=== PATIENT | male | born 1970 | race Caucasian/White ===

== ENCOUNTER 2017-05-31 12:59 | Emergency (ER) | payer OTHER ==
[2017-05-31 13:18] VITALS: BP 141/88; PULSE 72; RESP 16; TEMP 96.6
--- NOTE | 2017-05-31 13:31 | ED ---
General Adult HPI - General Chief complaint: Recheck/Abnormal Lab/Rx Stated complaint: Med Refill Time Seen by Provider: 05/31/17 13:17 Source: patient, RN notes reviewed Mode of arrival: ambulatory Limitations: no limitations - History of Present Illness Initial comments: 47-year-old male who presents emergency room today with chief complaint of needing medication refill. Patient does admit that he is on psychiatric medications of Seroquel, Lexapro. States that he's to his last dose of his medications earlier today. Patient does admit that he was following up with [facility]. He states that he was unable to keep appointments due to a new job. He states he does have an appointment with a new psychiatrist in 5 days. Will not have this medication is worried that he may have some symptoms. Denies any homicidal, suicidal thoughts or plans. Patient denies any auditory or visual hallucinations. He denies any other physical complaints. Patient denies any recent fever, chills, shortness of breath, chest pain, back pain, abdominal pain , nausea or vomiting, numbness or tingling, dysuria or hematuria, constipation or diarrhea, headaches or visual changes, or any other complaints. - Related Data Previous Rx's Medication Instructions Recorded QUEtiapine [SEROquel] 200 mg PO DAILY #30 tablet 03/27/16 Ondansetron Odt [Zofran ODT] 4 mg PO Q8HR PRN #15 tab 06/23/16 Escitalopram [Lexapro] 20 mg PO DAILY #10 tablet 05/31/17 QUEtiapine [SEROquel] 150 mg PO HS #15 tablet 05/31/17 Allergies Allergy/AdvReac Type Severity Reaction Status Date / Time No Known Allergies Allergy Verified 05/31/17 13:11 Review of Systems ROS Statement: Those systems with pertinent positive or pertinent negative responses have been documented in the HPI. ROS Other: All systems not noted in ROS Statement are negative. Past Medical History Past Medical History: COPD, Diabetes Mellitus, Hyperlipidemia, Hypertension Additional Past Medical History / Comment(s): Hypertension and hypertensive cardio vascular disease, diabetes mellitus type 2, diabetic neuropathy, hyperlipidemia, chronic tobacco use and dependence, chronic alcohol use and dependence. History of Any Multi-Drug Resistant Organisms: None Reported Past Surgical History: No Surgical Hx Reported Past Anesthesia/Blood Transfusion Reactions: No Reported Reaction Additional Past Anesthesia/Blood Transfusion Reaction / Comment(s): Never had anesthesia Past Psychological History: Anxiety, Bipolar, Depression, Panic Disorder Smoking Status: Current every day smoker Past Alcohol Use History: Occasional Past Drug Use History: None Reported - Past Family History Mother Family Medical History: Cancer Additional Family Medical History / Comment(s): Mother at age 58 from ovarian cancer. Father Family Medical History: Coronary Artery Disease (CAD), Myocardial Infarction ([place] ) Additional Family Medical History / Comment(s): Father at age 58 from myocardial infarction. His father also had 8 brothers who have all in their 50s from a myocardial infarction. Brother(s) Family Medical History: Hypertension Additional Family Medical History / Comment(s): Patient has 4 brothers and all have hypertension. Sister(s) Family Medical History: Cancer Additional Family Medical History / Comment(s): Patient has 3 sisters. 2 sisters have had breast cancer. One sister suffers from depression and has had previous suicide attempts. General Exam - General Exam Comments Initial Comments: General: The patient is awake and alert, in no distress, and does not appear acutely ill. Eye: Pupils are equal, round and reactive to light, extra-ocular movements are intact. No nystagmus. There is normal conjunctiva bilaterally. No signs of icterus. Ears, nose, mouth and throat: There are moist mucous membranes and no oral lesions. Neck: The neck is supple, there is no tenderness or JVD. Cardiovascular: There is a regular rate and rhythm. No murmur, rub or gallop is appreciated. Respiratory: Lungs are clear to auscultation, respirations are non-labored, breath sounds are equal. No wheezes, stridor, rales, or rhonchi. Musculoskeletal: Normal ROM, no tenderness. Strength 5/5. Sensation intact. Pulses equal bilaterally 2+. Neurological: A&O x 3. CN II-XII intact, There are no obvious motor or sensory deficits. Coordination appears grossly intact. Speech is normal. Skin: Skin is warm and dry and no rashes or lesions are noted. Psychiatric: Cooperative, appropriate mood & affect, normal judgment. Limitations: no limitations Course Vital Signs 05/31/17 13:11 Temperature 96.6 F L Pulse Rate 72 Respiratory 16 Rate Blood Pressure 141/88 O2 Sat by Pulse 100 Oximetry Medical Decision Making - Medical Decision Making Patient will be provided prescription for Seroquel and Lexapro for the next week until he is able follow-up with psychiatrist. Is advised return for any other concerns. Disposition Clinical Impression: Encounter for medication refill Disposition: HOME SELF-CARE Condition: Good Instructions: Medicine Refill (ED) Additional Instructions: Please follow-up with psychiatrist as discussed. Please use medication as prescribed. Please return to emergency room for any other concerns. Prescriptions: Escitalopram [Lexapro] 20 mg PO DAILY #10 tablet QUEtiapine [SEROquel] 150 mg PO HS #15 tablet Referrals: Marcell Noble MD [Primary Care Provider] - 1-2 days Time of Disposition: 13:28
== END 2017-05-31 13:44 | disposition home or self-care (01) ==
LOC: EC 12:59
DX: Z76.0 Encounter for issue of repeat prescription (principal); F41.9 Anxiety disorder, unspecified; F32.9 Major depressive disorder, single episode, unspecified; F17.200 Nicotine dependence, unspecified, uncomplicated
CPT/HCPCS: 99281

== ENCOUNTER 2017-09-02 11:09 | Inpatient (IN) | payer MEDICAID, OTHER ==
--- NOTE | 2017-09-02 11:37 | ED ---
General Adult HPI - General Chief complaint: Psychiatric Symptoms Stated complaint: Mental Health Time Seen by Provider: 09/02/17 11:11 Source: patient, EMS, RN notes reviewed Mode of arrival: EMS Limitations: no limitations - History of Present Illness Initial comments: Patient is a pleasant 47-year-old male presenting to the emergency Department with depression. Symptoms started around a week ago. Patient has multiple problems. Patient with recent separation from his significant other. Patient recently lost his job. Patient has suicidal thoughts with plan of getting drunk and running [place] [address]. No homicidal thoughts. Patient has been dealing with right ear problems and had MRI recently however this is somewhat chronic. No alcohol or street drug use. - Related Data Home Medications Medication Instructions Recorded Confirmed QUEtiapine [SEROquel] 150 mg PO HS 09/02/17 09/02/17 Previous Rx's Medication Instructions Recorded Escitalopram [Lexapro] 20 mg PO DAILY #10 tablet 05/31/17 Allergies Allergy/AdvReac Type Severity Reaction Status Date / Time No Known Allergies Allergy Verified 05/31/17 13:31 Review of Systems ROS Statement: Those systems with pertinent positive or pertinent negative responses have been documented in the HPI. ROS Other: All systems not noted in ROS Statement are negative. Constitutional: Denies: fever Eyes: Denies: eye pain ENT: Reports: hearing loss (for months from the right ear). Denies: throat pain Respiratory: Denies: cough Cardiovascular: Denies: chest pain Endocrine: Denies: fatigue Gastrointestinal: Denies: abdominal pain Genitourinary: Denies: dysuria Musculoskeletal: Denies: back pain Skin: Denies: rash Neurological: Denies: headache Psychiatric: Reports: depression, suicidal thoughts Past Medical History Past Medical History: COPD, Diabetes Mellitus, Hyperlipidemia, Hypertension Additional Past Medical History / Comment(s): Hypertension and hypertensive cardio vascular disease, diabetes mellitus type 2, diabetic neuropathy, hyperlipidemia, chronic tobacco use and dependence, chronic alcohol use and dependence. History of Any Multi-Drug Resistant Organisms: None Reported Past Surgical History: No Surgical Hx Reported Past Anesthesia/Blood Transfusion Reactions: No Reported Reaction Additional Past Anesthesia/Blood Transfusion Reaction / Comment(s): Never had anesthesia Past Psychological History: Anxiety, Bipolar, Depression, Panic Disorder Smoking Status: Current every day smoker Past Alcohol Use History: Occasional Past Drug Use History: None Reported - Past Family History Mother Family Medical History: Cancer Additional Family Medical History / Comment(s): Mother at age 58 from ovarian cancer. Father Family Medical History: Coronary Artery Disease (CAD), Myocardial Infarction ([place] ) Additional Family Medical History / Comment(s): Father at age 58 from myocardial infarction. His father also had 8 brothers who have all in their 50s from a myocardial infarction. Brother(s) Family Medical History: Hypertension Additional Family Medical History / Comment(s): Patient has 4 brothers and all have hypertension. Sister(s) Family Medical History: Cancer Additional Family Medical History / Comment(s): Patient has 3 sisters. 2 sisters have had breast cancer. One sister suffers from depression and has had previous suicide attempts. General Exam Limitations: no limitations General appearance: alert, in no apparent distress Head exam: Present: atraumatic Eye exam: Present: normal appearance, PERRL ENT exam: Present: TM's normal bilaterally Neck exam: Present: normal inspection Respiratory exam: Present: normal lung sounds bilaterally Cardiovascular Exam: Present: regular rate, normal rhythm GI/Abdominal exam: Present: soft. Absent: tenderness Extremities exam: Present: normal inspection Neurological exam: Present: alert Psychiatric exam: Present: depressed Skin exam: Present: normal color Course Vital Signs 09/02/17 09/02/17 11:12 13:36 Temperature 97.1 F L 97.8 F Pulse Rate 94 73 Respiratory 18 16 Rate Blood Pressure 167/103 136/81 O2 Sat by Pulse 100 98 Oximetry Medical Decision Making - Medical Decision Making Patient was seen by mental health services, who will admit. - Lab Data Lab Results 09/02/17 Range/Units 13:32 POC Glucose (mg/dL) 186 H (75-99) mg/dL POC Glu Residential Program Director ID Judith Carpenter Disposition Clinical Impression: Depression, Suicidal thoughts Disposition: TRANSFER TO PSYCH HOSP/UNIT Decision Time: 14:26
[2017-09-02 13:34] LABS: Glucose,Whole Blood 186 mg/dL (75-99)
[2017-09-02 14:47] LABS: Amphetamine Screen,Urine Not Detected (NotDetected); Barbiturate Screen,Urine Not Detected (NotDetected); Benzodiazepines Screen,Urine Not Detected (NotDetected); Cocaine Screen,Urine Not Detected (NotDetected); Methadone Screen, Urine Not Detected (NotDetected); Opiate Screen,Urine Not Detected (NotDetected); Oxycodone Screen, Urine Not Detected (NotDetected); Phencyclidine Screen,Urine Not Detected (NotDetected); Tricyclic Antidepressant,Urine Detected (NotDetected); Urn Cannabinoid Scrn Not Detected (NotDetected)
[2017-09-02 15:11] VITALS: BMI 28.6
[2017-09-02] MEDS ORDERED: MAGNESIUM HYDROXIDE 2,400 MG/10 ML CUP PO PRN (15:46)
[2017-09-02] MEDS ORDERED: ACETAMINOPHEN TAB 325 MG TAB PO PRN (15:46)
[2017-09-02] MEDS ORDERED: MAG HYDROX/AL HYDROX/SIMETH 30 ML CUP PO PRN (15:46)
[2017-09-02 16:01] LABS: Glucose,Whole Blood 131 mg/dL (75-99)
[2017-09-02] MEDS: NICOTINE 21MG/24HR PATCH TRANSDERM SCH (16:25)
[2017-09-02] MEDS: metFORMIN 850 MG TAB PO SCH ×2 (16:25→21:08)
[2017-09-02 17:10] LABS: Glucose,Whole Blood 125 mg/dL (75-99)
[2017-09-02 20:20] LABS: Glucose,Whole Blood 183 mg/dL (75-99)
[2017-09-02] MEDS: ATORVASTATIN 20 MG TAB PO SCH (21:08)
[2017-09-02] MEDS: METOPROLOL TARTRATE 50 MG TAB PO SCH (21:08)
[2017-09-02] MEDS: QUEtiapine 50 MG TAB PO SCH (21:09)
[2017-09-03 06:16] LABS: Glucose,Whole Blood 152 mg/dL (75-99)
[2017-09-03 07:51] LABS: Basophils # (A) 0.1 k/uL (0-0.2); Basophils % (A) 1 %; Eosinophils # (A) 0.3 k/uL (0-0.7); Eosinophils % (A) 4 %; HCT 43.7 % (39.0-53.0); HGB 14.6 gm/dL (13.0-17.5); Lymphocytes % (A) 30 %; MCH 32.2 pg (25.0-35.0); MCHC 33.3 g/dL (31.0-37.0); MCV 96.8 fL (80.0-100.0); Mean Platelet Volume 8.2; Monocytes # (A) 0.4 k/uL (0-1.0); Monocytes % (A) 6 %; Neutrophils # (A) 3.9 k/uL (1.3-7.7); Neutrophils % (A) 58 %; Platelet Count 190 k/uL (150-450); RBC 4.51 m/uL (4.30-5.90); RDW 12.4 % (11.5-15.5); WBC 6.7 k/uL (3.8-10.6)
[2017-09-03] MEDS: METOPROLOL TARTRATE 50 MG TAB PO SCH ×2 (08:38→21:10)
[2017-09-03] MEDS: LISINOPRIL 10 MG TAB PO SCH (08:38)
[2017-09-03] MEDS: metFORMIN 850 MG TAB PO SCH ×3 (08:38→21:10)
[2017-09-03] MEDS: NICOTINE 21MG/24HR PATCH TRANSDERM SCH (08:38)
[2017-09-03 08:41] LABS: ALT 50 U/L (21-72); AST 29 U/L (17-59); Alkaline Phosphatase 48 U/L (38-126); Anion Gap 7 mmol/L; Blood Urea Nitrogen 12 mg/dL (9-20); Calcium 9.9 mg/dL (8.4-10.2); Carbon Dioxide 30 mmol/L (22-30); Chloride 103 mmol/L (98-107); Cholesterol 149 mg/dL (<200); Glucose 175 mg/dL (74-99); HDL Cholesterol 28 mg/dL (40-60); Potassium 4.9 mmol/L (3.5-5.1); Sodium 140 mmol/L (137-145); Total Bilirubin 0.3 mg/dL (0.2-1.3); Total Protein 6.5 g/dL (6.3-8.2); Triglycerides 469 mg/dL (<150)
[2017-09-03] MEDS ORDERED: ESCITALOPRAM 20 MG TAB PO SCH (09:00)
--- NOTE | 2017-09-03 09:47 | CONS ---
CONSULTATION DATE OF SERVICE: 09/02/2017 REASON FOR CONSULTATION: Medical management. BRIEF HISTORY: Patient is a 47-year-old male patient with a history of depression which started about a week ago. Patient is going through stressors in life with the separation from his significant other, recently lost his job and claims that he has a suicidal thoughts and planned on getting drunk and running in front of a semi-truck on -. PAST MEDICAL HISTORY: Significant for COPD, diabetes, hypertension, hyperlipidemia, diabetic neuropathy, chronic tobacco use, chronic alcohol use and dependence. History of anxiety, bipolar, depression, panic disorder. PAST SURGICAL HISTORY: Denies any surgeries. SOCIAL HISTORY: Patient smokes a pack of cigarettes every day. Claims he binge drinks. FAMILY HISTORY: Significant for cancer in mother who at the age of 58 of ovarian cancer. Father has history of coronary artery disease. ALLERGIES: He has no known drug allergies. MEDICATION: He is on Seroquel 150 mg p.o. q.h.s., Lexapro 20 mg p.o. daily. REVIEW OF SYSTEMS: CONSTITUTIONAL: Denies any fever or chills. HEENT: No deafness or vision loss. RESPIRATORY: Denies shortness of breath or wheezing. CARDIOVASCULAR: No chest pain or palpitation. GI AND ABDOMEN: Denies nausea, vomiting or diarrhea. GENITOURINARY: No hematuria and no dysuria. MUSCULOSKELETAL: The patient has good range of motion. Denies any joint deformities. NEUROLOGICAL: Denies headache, lightheadedness, dizziness. LYMPHATICS: Denies any enlarged lymph nodes. ENDOCRINE: Denies polyuria, polydipsia. RHEUMATOLOGICAL: Denies any joint swelling. HEME/ONCOLOGY: Denied any bleeding disorder or anemia. Rest of 14-point review of system is unremarkable. PHYSICAL EXAMINATION: Patient is awake, alert, slow to respond. VITAL SIGNS: Temperature of 97.1, pulse 94, respiration 18, blood pressure 167/103, O2 saturation 100%. HEENT: Atraumatic, normocephalic. Pupils equal and reactive to light. Extraocular movements intact. Buccal mucosa is fair. NECK: Supple. No goiter or lymphadenopathy. JVD is negative. No carotid bruit heard. Lungs are clear to auscultate. No rales, rhonchi or wheezes. Heart is regular rate and rhythm without any murmurs gallop rhythm. ABDOMEN: Soft, nontender, nondistended. Bowel sounds positive. EXTREMITIES: No edema, clubbing, cyanosis. NEUROLOGICAL EXAMINATION: Cranial nerves 2-12 grossly intact. No gross motor or sensory deficit. PSYCHIATRIC EXAMINATION: Patient is slow to respond and withdrawn. Skin is warm and dry and intact. LYMPHATICS: No lymph nodes are palpable. The patient's blood sugar running 186. ASSESSMENT: 1. Uncontrolled hypertension. 2. Hyperglycemia without acidosis. 3. Hyperlipidemia. 4. Hypertension. 5. Chronic obstructive pulmonary disease. 6. Tobacco dependence. 7. Alcohol dependence. 8. Depression with suicidal ideation. The patient is admitted to the psych floor and monitor Accu-Cheks and cover accordingly. Will continue with all home medications. Patient's blood pressure was markedly elevated and upon presentation to the ER, is somewhat stable now. Will monitor closely and adjust medications if needed. Will resume all home medications. Me and my team thank you for this kind consultation. We will follow the patient with you. LESLIE / ROBERTA: [id number] /
[2017-09-03] MEDS ORDERED: ESCITALOPRAM 10 MG TAB PO STA (10:02)
[2017-09-03 13:00] LABS: Glucose,Whole Blood 170 mg/dL (75-99)
[2017-09-03 18:02] LABS: Hemoglobin A1C 7.9 % (4.0-6.0)
[2017-09-03 18:02] LABS: Glucose,Whole Blood 128 mg/dL (75-99)
[2017-09-03 19:34] LABS: Appearance,Urine Clear (Clear); Bilirubin,Urine Negative (Negative); Blood,Urine Negative (Negative); Color,Urine Yellow; Glucose,Urine (UA) Negative (Negative); Ketones,Urine Trace (Negative); Leukocyte Esterase,Urine Negative (Negative); Mucus,Urine Occasional /hpf; Nitrite,Urine Negative (Negative); PH, Urine 6.5 (5.0-8.0); Protein,Urine 1+ (Negative); Specific Gravity,Urine 1.025 (1.001-1.035); Sperm,Urine Few /hpf; WBC,Urine <1 /hpf (0-5)
[2017-09-03 20:21] LABS: Glucose,Whole Blood 168 mg/dL (75-99)
[2017-09-03] MEDS: QUEtiapine 50 MG TAB PO SCH (21:10)
[2017-09-03] MEDS: ATORVASTATIN 20 MG TAB PO SCH (21:10)
[2017-09-04 06:15] LABS: Glucose,Whole Blood 158 mg/dL (75-99)
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
[2017-09-04] MEDS: NICOTINE 21MG/24HR PATCH TRANSDERM SCH (09:26)
[2017-09-04] MEDS: METOPROLOL TARTRATE 50 MG TAB PO SCH ×2 (09:27→21:07)
[2017-09-04] MEDS: metFORMIN 850 MG TAB PO SCH ×3 (09:27→21:07)
[2017-09-04] MEDS: LISINOPRIL 10 MG TAB PO SCH (09:27)
[2017-09-04] MEDS: ESCITALOPRAM 10 MG TAB PO SCH (09:27)
[2017-09-04] MEDS: LORazepam 1 MG TAB PO PRN ×2 (09:28→21:07)
[2017-09-04 12:32] LABS: Glucose,Whole Blood 139 mg/dL (75-99)
--- NOTE | 2017-09-04 17:30 | P.PN ---
Progress Note - Text Date of service: 09/04/2017 Chief complaint: "Still feels suicidal " Subjective: The patient has been seen today as follow-up, chart reviewed, case discussed with the treatment team. Patient slept about interrupted 6-7 hours last night and he reported nightmares that interrupt his asleep. Patient has been not persistently going to groups and other unit activities. Patient reports fair appetite problems. Patient continued to report suicidal thoughts and he did that his suicidal thoughts doesn't scare him. Patient stated his feeling that he is going to a better place if he committed suicide. The patient denies any active suicidal plan but he stated he will act on that his outside the hospital by going to [address] and stay in front of a truck. Patient reported feeling safe at the hospital and he denies any active suicidal plan. He reported his depression still high and his anxiety is the worst. He denies auditory hallucinations, but reported sometimes sees a bright light. The patient is compliant with his medications and denies any adverse reactions. Review of other systems: Patient denies any physical symptoms besides what has been mentioned above. No breathing problems, no chest pain reported today. Objective: Vitals has been reviewed. Mental status examination; The patient appears stated age, disheveled, with no specific features. His gait looks normal and he has normal arm swinging with no abnormal movements. Patient was cooperative and has fair eye contact. He has decreased psychomotor activity. Speech was slow and soft, and his mood was depressed and anxious, with affect was constricted. Thought process was linear and goal-directed. The thought content was fixated on the suicidal thoughts, but he denies homicidal thoughts. He denies any suicidal or homicidal intentions or plans. Perception: Denies any auditory or visual hallucinations Attention: No impairment. Patient was able to repeat serial 5. Orientation: Patient patient was fully oriented to time place person and situation. Insight: Patient has limited insight about his psychiatric disorder. Judgment: Patient has limited judgment about his psychiatric treatment. Assessment: Major depressive disorder recurrent severe with psychotic features PTSD Alcohol use disorder by history Plan: Continue with inpatient psychiatric hospitalization for monitoring and continue treatment. Continue group therapy and other unit activities. Continue psychiatric medications: Will increase Seroquel to 200 mg as a mood stabilizer and we will add Neurontin 200 mg 3 times a day for anxiety. We will continue Lexapro 30 mg daily. Will add folic acid and B12 supplement.
[2017-09-04 17:45] LABS: Glucose,Whole Blood 108 mg/dL (75-99)
[2017-09-04] MEDS: GABAPENTIN 100 MG CAP PO SCH ×2 (18:59→21:07)
[2017-09-04 20:16] LABS: Glucose,Whole Blood 203 mg/dL (75-99)
[2017-09-04] MEDS ORDERED: QUEtiapine 200 MG TAB PO SCH (21:00)
[2017-09-04] MEDS: ATORVASTATIN 20 MG TAB PO SCH (21:07)
[2017-09-05 06:27] LABS: Glucose,Whole Blood 142 mg/dL (75-99)
[2017-09-05] MEDS: NICOTINE 21MG/24HR PATCH TRANSDERM SCH (08:26)
[2017-09-05] MEDS: LISINOPRIL 10 MG TAB PO SCH (08:27)
[2017-09-05] MEDS: METOPROLOL TARTRATE 50 MG TAB PO SCH ×2 (08:27→21:09)
[2017-09-05] MEDS: metFORMIN 850 MG TAB PO SCH ×3 (08:27→21:09)
[2017-09-05] MEDS: ESCITALOPRAM 10 MG TAB PO SCH (08:27)
[2017-09-05] MEDS: GABAPENTIN 100 MG CAP PO SCH ×3 (08:27→21:10)
[2017-09-05] MEDS: FOLIC ACID 1 MG TAB PO SCH (12:13)
[2017-09-05] MEDS: CYANOCOBALAMIN 500 MCG TAB PO SCH (12:13)
[2017-09-05 12:28] LABS: Glucose,Whole Blood 152 mg/dL (75-99)
--- NOTE | 2017-09-05 15:47 | P.PN ---
Progress Note - Text Date of service: 09/05/2017 Chief complaint: "I am still feeling the same " Subjective: The patient has been seen today as follow-up, chart reviewed, case discussed with the treatment team. Patient slept about more than 4-5 hours last night. Patient has been not persistently going to groups and other unit activities. Patient reports fair appetite problems. The patient reported to still feeling the same that he is not scared of his suicidal thoughts. He stated that "when I think about suicide I see a light and hearing the voice telling me it's okay to do it and to come to me"the patient reported to still has suicidal thoughts but denies any acute or current plan or intent. Patient reported he feels safe at the hospital and he always has somebody to talk to. Patient reported his depression is still high and his anxiety still very high as well. He stated feeling paranoid that other people might know how bad he looks. The patient reported has been on Lexapro for more than a year and he didn't note any benefit and regarding of depression or anxiety symptoms. The patient is compliant with his medications and denies any adverse reactions. Review of other systems: Patient denies any physical symptoms besides what has been mentioned above. No breathing problems, no chest pain reported today. Objective: Vitals has been reviewed. Mental status examination; The patient appears stated age, disheveled, with no specific features. His gait looks normal and he has normal arm swinging with no abnormal movements. Patient was cooperative and has fair eye contact. He has decreased psychomotor activity. Speech was slow and soft, and his mood was depressed and anxious, with affect was constricted. Thought process was linear and goal-directed. The thought content was fixated on the suicidal thoughts, but he denies homicidal thoughts. He denies any suicidal or homicidal intentions or plans. Perception: Denies any visual hallucinations, reported AH Attention: No impairment. Orientation: Patient patient was fully oriented to time place person and situation. Insight: Patient has limited insight about his psychiatric disorder. Judgment: Patient has limited judgment about his psychiatric treatment. Assessment: Major depressive disorder recurrent severe with psychotic features PTSD Alcohol use disorder by history Plan: Continue with inpatient psychiatric hospitalization for monitoring and continue treatment. Continue group therapy and other unit activities. Continue psychiatric medications: Will increase Seroquel up to 300 mg to address mood instability and auditory hallucinations. We'll switch Lexapro to Effexor with a slow taper down on Lexapro and start Effexor 75 mg tomorrow. Consider to increase the Neurontin to address anxiety symptoms.
[2017-09-05 18:00] LABS: Glucose,Whole Blood 128 mg/dL (75-99)
[2017-09-05 20:28] LABS: Glucose,Whole Blood 174 mg/dL (75-99)
[2017-09-05] MEDS: ATORVASTATIN 20 MG TAB PO SCH (21:09)
[2017-09-05] MEDS: QUEtiapine 100 MG TAB PO SCH (21:10)
[2017-09-06 06:36] LABS: Glucose,Whole Blood 134 mg/dL (75-99)
[2017-09-06] MEDS: NICOTINE 21MG/24HR PATCH TRANSDERM SCH (08:17)
[2017-09-06] MEDS: GABAPENTIN 100 MG CAP PO SCH (08:17)
[2017-09-06] MEDS: METOPROLOL TARTRATE 50 MG TAB PO SCH ×2 (08:18→21:04)
[2017-09-06] MEDS: metFORMIN 850 MG TAB PO SCH ×3 (08:18→21:04)
[2017-09-06] MEDS: LISINOPRIL 10 MG TAB PO SCH (08:18)
[2017-09-06] MEDS ORDERED: VENLAFAXINE HCL ER 75 MG CAP PO SCH (09:00)
[2017-09-06] MEDS: CYANOCOBALAMIN 500 MCG TAB PO SCH (12:33)
[2017-09-06 12:34] LABS: Glucose,Whole Blood 124 mg/dL (75-99)
[2017-09-06] MEDS: FOLIC ACID 1 MG TAB PO SCH (12:34)
--- NOTE | 2017-09-06 15:22 | P.PN ---
Progress Note - Text Date of service:09/06/2017 Chief complaint: "I started to hear a different voice" Subjective: The patient has been seen today as follow-up, chart reviewed, case discussed with the treatment team. Patient slept about 8 hours last night. Patient has been going to selected groups and other unit activities. Reported nightmares are less severe last night and not interrupted his sleep. Patient reports fair appetite. The patient reported started to hear an "angry" voices telling him that "your are not doing good enough" and minimizing everything he is doing. He reported the angry voice is very similar to the voice of his father. He reported also hearing other voices which is calming and soothing voices telling him "every thing will be ok." He reported has been hearing the angry voice more today. He reported has been feeling more depressed with loss of energy and lack of motivation for most of the day. He still feeling paranoid "people talking about me" and voiding other people for most of the day. He reported his anxiety is relatively better but has bouts of severe anxiety when he hears the "angry" voice. The patient is compliant with his medications and denies any adverse reactions. Review of other systems: Patient denies any physical symptoms besides what has been mentioned above. No breathing problems, no chest pain reported today. Objective: Vitals has been reviewed. Mental status examination; The patient appears stated age, better groomed today, with no specific features. His gait looks normal and he has normal arm swinging with no abnormal movements. Patient was cooperative and has fair eye contact. He has decreased psychomotor activity. Speech was slow and soft. Mood was depressed and anxious, with affect was constricted. Thought process was linear and goal-directed. The thought content was fixated on the voices and still has suicidal thoughts. He denies homicidal thoughts. He denies any suicidal or homicidal intentions or plans. Perception: Denies any visual hallucinations, reported AH Attention: No impairment. Orientation: Patient patient was fully oriented to time place person and situation. Insight: Patient has limited insight about his psychiatric disorder. Judgment: Patient has limited judgment about his psychiatric treatment. Assessment: Major depressive disorder recurrent severe with psychotic features PTSD Alcohol use disorder by history Plan: Continue with inpatient psychiatric hospitalization for monitoring and continue treatment. Continue group therapy and other unit activities. Continue psychiatric medications: Will increase Seroquel up to 50 mg am and 2 pm besides keep 300 mg HS to address mood instability and auditory hallucinations. Inc Effexor to 150 mg for depression and anxiety. Increase the Neurontin to to 300 mg TID for anxiety symptoms.
[2017-09-06] MEDS: QUEtiapine 50 MG TAB PO SCH (15:42)
[2017-09-06] MEDS: GABAPENTIN 300 MG CAP PO SCH ×2 (15:44→21:05)
[2017-09-06 17:36] LABS: Glucose,Whole Blood 147 mg/dL (75-99)
[2017-09-06 20:10] LABS: Glucose,Whole Blood 159 mg/dL (75-99)
[2017-09-06] MEDS: QUEtiapine 100 MG TAB PO SCH (21:04)
[2017-09-06] MEDS: ATORVASTATIN 20 MG TAB PO SCH (21:04)
[2017-09-06] MEDS: LORazepam 1 MG TAB PO PRN (21:05)
[2017-09-07 06:36] LABS: Glucose,Whole Blood 160 mg/dL (75-99)
[2017-09-07] MEDS: LISINOPRIL 10 MG TAB PO SCH (08:45)
[2017-09-07] MEDS: NICOTINE 21MG/24HR PATCH TRANSDERM SCH (08:45)
[2017-09-07] MEDS: metFORMIN 850 MG TAB PO SCH ×3 (08:46→20:55)
[2017-09-07] MEDS: GABAPENTIN 300 MG CAP PO SCH ×3 (08:46→20:55)
[2017-09-07] MEDS: VENLAFAXINE HCL ER 150 MG CAP PO SCH (08:46)
[2017-09-07] MEDS: QUEtiapine 50 MG TAB PO SCH ×2 (08:46→16:11)
[2017-09-07] MEDS: METOPROLOL TARTRATE 50 MG TAB PO SCH ×2 (08:46→20:54)
[2017-09-07] MEDS: CYANOCOBALAMIN 500 MCG TAB PO SCH (12:02)
[2017-09-07] MEDS: FOLIC ACID 1 MG TAB PO SCH (12:02)
[2017-09-07 12:30] LABS: Glucose,Whole Blood 133 mg/dL (75-99)
--- NOTE | 2017-09-07 15:20 | P.PN ---
Progress Note - Text Date of service: 09/07/2017 Chief complaint: "I feel slightly better " Subjective: The patient has been seen today as follow-up, chart reviewed, case discussed with the treatment team. Patient slept about 6 interrupted hours last night. Patient has been going to selected groups and other unit activities. Patient reports fair appetite. Patient reported feeling some improvement of his mood and he has some hope that things might get better. He reported the suicidal thoughts are less intense and better controlled today. He admitted for still has a plan if he is outside the hospital he will go to a freeway in front of a truck. He admitted for still hearing the voices which could be calming voice and angry voice. He minimized the intensity of the voices. He reported high anxiety related to worries about his instability when he would leave the hospital. The patient is compliant with his medications and denies any adverse reactions. Review of other systems: Patient denies any physical symptoms besides what has been mentioned above. No breathing problems, no chest pain reported today. Objective: Vitals has been reviewed. Mental status examination; The patient appears stated age, groomed today, with no specific features. His gait looks normal and he has normal arm swinging with no abnormal movements. Patient was cooperative and has fair eye contact. He has decreased psychomotor activity. Speech was slow and soft. Mood was depressed and anxious, with affect was constricted. Thought process was linear and goal-directed. The thought content was fixated on the voices and still has suicidal thoughts. He denies homicidal thoughts. He denies any suicidal or homicidal intentions or plans. Perception: Denies any visual hallucinations, reported AH Attention: No impairment. Orientation: Patient patient was fully oriented to time place person and situation. Insight: Patient has limited insight about his psychiatric disorder. Judgment: Patient has limited judgment about his psychiatric treatment. Assessment: Major depressive disorder recurrent severe with psychotic features PTSD Alcohol use disorder by history Plan: Continue with inpatient psychiatric hospitalization for monitoring and continue treatment. Continue group therapy and other unit activities. Continue psychiatric medications: Continue Seroquel 50 mg twice a day and 300 mg at bedtime and to consider to increase the dose if the patient is still psychotic. Continue Effexor 150 mg for the depression and to continue Neurontin 300 mg for anxiety. Medication changes was done yesterday. Continue to monitor the patient and address any changes of medication as needed.
[2017-09-07 17:17] LABS: Glucose,Whole Blood 144 mg/dL (75-99)
[2017-09-07 20:03] LABS: Glucose,Whole Blood 201 mg/dL (75-99)
[2017-09-07] MEDS: ATORVASTATIN 20 MG TAB PO SCH (20:54)
[2017-09-07] MEDS: QUEtiapine 100 MG TAB PO SCH (20:54)
[2017-09-08 06:43] LABS: Glucose,Whole Blood 197 mg/dL (75-99)
[2017-09-08] MEDS: metFORMIN 850 MG TAB PO SCH ×3 (08:53→21:25)
[2017-09-08] MEDS: NICOTINE 21MG/24HR PATCH TRANSDERM SCH (08:53)
[2017-09-08] MEDS: GABAPENTIN 300 MG CAP PO SCH ×3 (08:54→21:25)
[2017-09-08] MEDS: VENLAFAXINE HCL ER 150 MG CAP PO SCH (08:54)
[2017-09-08] MEDS: LISINOPRIL 10 MG TAB PO SCH (08:54)
[2017-09-08] MEDS: METOPROLOL TARTRATE 50 MG TAB PO SCH ×2 (08:54→21:25)
[2017-09-08] MEDS: QUEtiapine 50 MG TAB PO SCH ×2 (08:54→15:33)
[2017-09-08] MEDS: CYANOCOBALAMIN 500 MCG TAB PO SCH (12:08)
[2017-09-08] MEDS: FOLIC ACID 1 MG TAB PO SCH (12:08)
[2017-09-08 12:43] LABS: Glucose,Whole Blood 159 mg/dL (75-99)
[2017-09-08] MEDS: LORazepam 1 MG TAB PO PRN (15:33)
--- NOTE | 2017-09-08 15:51 | P.PN ---
Progress Note - Text interval history: The patient is found in the hallway he follows me to an interview room. He was admitted for having suicidal ideation in the context of experiencing auditory hallucinations. He continues to report to voices 1 loud 1 calm. He feels safe here in the hospital but still has some suicidal thoughts. He is on Effexor XR and Seroquel has recently been titrated for the hallucinations. The daytime dose tends to make him a little groggy but he is willing to continue it to see if he will acclimate to the medication. He reports attending groups appetite stable. Mental status exam: The patient is alert he stressors unclothing eye contact is appropriate hygiene is adequate he's mildly disheveled. Speech is fluent spontaneous nonpressured thought process is linear. He reports a depressed mood with some suicidal thinking still. He endorses hearing 2 voices throughout the day 1 loud and aggressive and the other is calming. He is endorsing no homicidal ideation. He is oriented to person place and date. He demonstrates no verbal or physical aggressiveness he demonstrates no abnormal involuntary movements. Plan: The patient's will continue on his current medications we will continue to monitor him for safety vital signs reviewed. Consideration will be given to titrating the Seroquel further.
[2017-09-08 17:14] LABS: Glucose,Whole Blood 157 mg/dL (75-99)
[2017-09-08 20:13] LABS: Glucose,Whole Blood 199 mg/dL (75-99)
[2017-09-08] MEDS: QUEtiapine 100 MG TAB PO SCH (21:25)
[2017-09-08] MEDS: ATORVASTATIN 20 MG TAB PO SCH (21:25)
[2017-09-09 06:50] LABS: Glucose,Whole Blood 127 mg/dL (75-99)
[2017-09-09] MEDS: NICOTINE 21MG/24HR PATCH TRANSDERM SCH (09:21)
[2017-09-09] MEDS: QUEtiapine 50 MG TAB PO SCH ×2 (09:22→15:34)
[2017-09-09] MEDS: METOPROLOL TARTRATE 50 MG TAB PO SCH ×2 (09:22→20:44)
[2017-09-09] MEDS: metFORMIN 850 MG TAB PO SCH ×3 (09:22→20:44)
[2017-09-09] MEDS: LISINOPRIL 10 MG TAB PO SCH (09:22)
[2017-09-09] MEDS: VENLAFAXINE HCL ER 150 MG CAP PO SCH (09:22)
[2017-09-09] MEDS: GABAPENTIN 300 MG CAP PO SCH ×3 (09:22→20:44)
--- NOTE | 2017-09-09 09:57 | P.PN ---
Progress Note - Text Interval history: The patient is found in his room he follows me to an interview room. He reports having difficulty sleeping last night as he was experiencing nightmares. He states that the voices have been worse in the morning. He hears comforting voices and derogatory ones. He states he feels more paranoid. Rationally he knows the staff are here to help him but he has concern that people here can read his mind. He states he was worried that he was keeping his roommate up last night as they could read his thoughts. We reviewed his medications and his questions were answered. We discussed that the Seroquel will need to be titrated further to further address symptoms of psychosis. Mental status exam: The patient is alert he has a disheveled appearance he is dressed in his own clothing hygiene is adequate. Eye contact is appropriate. Speech is fluent spontaneous nonpressured he is easily directed during the session. He reports a dysphoric mood with some suicidal ideation this morning due to ongoing hallucinations and feelings of guilt that he Ruminates awake with his thoughts last evening. He reports concerns that staff can read his mind. He is reporting no homicidal ideation intent or plan. Thought process is linear he demonstrates no tangential thinking loose associations or flight of ideas. He demonstrates no verbal or physical aggressiveness. He demonstrates no abnormal involuntary movements. Insight and judgment limited. Plan: The patient will continue on his current medications however I will titrate the Seroquel to 400 mg at bedtime and continue the daily doses as well. We will monitor him for safety and encourage his participation in the milieu. Vital signs reviewed.
[2017-09-09 11:48] LABS: Glucose,Whole Blood 173 mg/dL (75-99)
[2017-09-09] MEDS: CYANOCOBALAMIN 500 MCG TAB PO SCH (13:33)
[2017-09-09] MEDS: FOLIC ACID 1 MG TAB PO SCH (13:34)
[2017-09-09] MEDS: LORazepam 1 MG TAB PO PRN (15:35)
[2017-09-09 17:40] LABS: Glucose,Whole Blood 112 mg/dL (75-99)
[2017-09-09 20:13] LABS: Glucose,Whole Blood 200 mg/dL (75-99)
[2017-09-09] MEDS: ATORVASTATIN 20 MG TAB PO SCH (20:44)
[2017-09-09] MEDS ORDERED: QUEtiapine 400 MG TAB PO SCH (21:00)
[2017-09-10 06:37] LABS: Glucose,Whole Blood 152 mg/dL (75-99)
[2017-09-10] MEDS: NICOTINE 21MG/24HR PATCH TRANSDERM SCH (09:14)
[2017-09-10] MEDS: LISINOPRIL 10 MG TAB PO SCH (09:14)
[2017-09-10] MEDS: metFORMIN 850 MG TAB PO SCH ×3 (09:14→20:58)
[2017-09-10] MEDS: GABAPENTIN 300 MG CAP PO SCH ×3 (09:14→20:57)
[2017-09-10] MEDS: QUEtiapine 50 MG TAB PO SCH ×2 (09:14→15:16)
[2017-09-10] MEDS: VENLAFAXINE HCL ER 150 MG CAP PO SCH (09:15)
[2017-09-10] MEDS: METOPROLOL TARTRATE 50 MG TAB PO SCH ×2 (09:15→20:58)
[2017-09-10] MEDS: LORazepam 1 MG TAB PO PRN ×2 (09:15→21:00)
[2017-09-10 12:43] LABS: Glucose,Whole Blood 176 mg/dL (75-99)
[2017-09-10] MEDS: FOLIC ACID 1 MG TAB PO SCH (13:47)
[2017-09-10] MEDS: CYANOCOBALAMIN 500 MCG TAB PO SCH (13:47)
[2017-09-10 17:52] LABS: Glucose,Whole Blood 170 mg/dL (75-99)
[2017-09-10 20:09] LABS: Glucose,Whole Blood 191 mg/dL (75-99)
[2017-09-10] MEDS: ATORVASTATIN 20 MG TAB PO SCH (20:58)
[2017-09-10] MEDS ORDERED: QUEtiapine 400 MG TAB PO SCH (21:00)
[2017-09-11 06:19] LABS: Glucose,Whole Blood 144 mg/dL (75-99)
--- NOTE | 2017-09-11 06:20 | PN ---
PROGRESS NOTE DATE OF SERVICE: 09/10/2017 CHIEF COMPLAINT: The patient was depressed. He had suicide thoughts. He had a plan of getting drunk and running in front of a semi truck. INTERVAL HISTORY: Patient has been doing fair. He had a quiet evening last night. He says that he did not sleep too well last night, though staff documented that he slept about 6 hours. He had requested p.r.n. Ativan both that at 9:15 as well as 1:45. He feels that the medication was helpful in reducing anxiety. He reported that he does have some thoughts of suicide. He also has some fleeting voices and paranoid thinking. He acknowledges that these thoughts come and go. Sometimes they are more intense and sometimes quieter. Overall, he feels that he has made a little progress in that regard. He did have complaints of nightmares last night. He attends groups sporadically. He has not had change in his general health. He tolerates his psychotropic medications. MENTAL STATUS: Patient was somewhat restless. He gave fairly good eye contact. He answered questions with direct responses. He was a little tangential at times. His affect was somewhat constricted. His mood reserved. He seems somewhat distressed. ASSESSMENT: I will continue the current diagnosis and treatment plan. I will increase the Seroquel up to 600 mg at bedtime. He will continue 50 mg twice a day. He will continue other psychotropic medications the same. I reviewed medication issues with the patient including side effects, as well as concerns relating to metabolics regarding Seroquel. We will continue to focus on stabilization and discharge planning. LESLIE / ROBERTA: [id number] /
[2017-09-11] MEDS: METOPROLOL TARTRATE 50 MG TAB PO SCH ×2 (09:13→20:36)
[2017-09-11] MEDS: NICOTINE 21MG/24HR PATCH TRANSDERM SCH (09:13)
[2017-09-11] MEDS: metFORMIN 850 MG TAB PO SCH ×3 (09:13→20:36)
[2017-09-11] MEDS: VENLAFAXINE HCL ER 150 MG CAP PO SCH (09:14)
[2017-09-11] MEDS: CYANOCOBALAMIN 500 MCG TAB PO SCH (09:14)
[2017-09-11] MEDS: FOLIC ACID 1 MG TAB PO SCH (09:14)
[2017-09-11] MEDS: LISINOPRIL 10 MG TAB PO SCH (09:14)
[2017-09-11] MEDS: GABAPENTIN 300 MG CAP PO SCH ×3 (09:14→20:36)
[2017-09-11] MEDS: QUEtiapine 50 MG TAB PO SCH (09:14)
[2017-09-11] MEDS ORDERED: OLANZapine 10 MG TAB PO STA (12:15)
[2017-09-11 12:32] LABS: Glucose,Whole Blood 155 mg/dL (75-99)
[2017-09-11] MEDS: OLANZapine 10 MG TAB PO SCH ×2 (16:36→20:37)
[2017-09-11 17:23] LABS: Glucose,Whole Blood 174 mg/dL (75-99)
[2017-09-11 20:01] LABS: Glucose,Whole Blood 215 mg/dL (75-99)
[2017-09-11] MEDS: ATORVASTATIN 20 MG TAB PO SCH (20:36)
[2017-09-12 06:18] LABS: Glucose,Whole Blood 178 mg/dL (75-99)
[2017-09-12] MEDS: NICOTINE 21MG/24HR PATCH TRANSDERM SCH (08:49)
[2017-09-12] MEDS: METOPROLOL TARTRATE 50 MG TAB PO SCH ×2 (08:50→21:20)
[2017-09-12] MEDS: LISINOPRIL 10 MG TAB PO SCH (08:50)
[2017-09-12] MEDS: VENLAFAXINE HCL ER 150 MG CAP PO SCH (08:50)
[2017-09-12] MEDS: OLANZapine 10 MG TAB PO SCH ×3 (08:50→21:20)
[2017-09-12] MEDS: metFORMIN 850 MG TAB PO SCH ×3 (08:50→21:20)
[2017-09-12] MEDS: GABAPENTIN 300 MG CAP PO SCH ×3 (08:50→21:20)
[2017-09-12] MEDS: FOLIC ACID 1 MG TAB PO SCH (12:28)
[2017-09-12] MEDS: CYANOCOBALAMIN 500 MCG TAB PO SCH (12:28)
[2017-09-12 12:33] LABS: Glucose,Whole Blood 177 mg/dL (75-99)
--- NOTE | 2017-09-12 16:18 | PN ---
PROGRESS NOTE DATE OF SERVICE: 09/11/2017. CHIEF COMPLAINT: The patient was depressed. He had suicide thoughts. He had a plan of getting drunk and running in front of a semi truck. INTERVAL HISTORY: Patient has been doing fair. He said that he slept fair last night, though then woke up this morning. He had a lot of anxiety. He had hallucinations. He notes that this has been happening more frequently in the morning time over the last several days. He says as the day goes on, things seem to get a little better for him. He attends groups sporadically. He does interact some with others. He has been able to discuss appropriate discharge planning issues. He has not had change in his general health. He tolerates his psychotropic medications. MENTAL STATUS: Patient gave fair eye contact. Psychomotor activity was slowed. Speech was monotone. He answered questions with brief responses. His affect was somewhat constricted. His mood was quiet. He did appear to be significantly distressed. ASSESSMENT: I will continue the current diagnosis and treatment plan. His Zyprexa has been titrated up to 10 mg 3 times a day to address psychotic symptoms and in particular to help with a pattern of morning time hallucinations. His Effexor has been titrated up to 150 mg a day. We discussed discharge planning issues. We will focus on stabilization and discharge planning. LESLIE / TIBURCION: [id number] /
--- NOTE | 2017-09-12 16:18 | PN ---
PROGRESS NOTE DATE OF SERVICE: 09/12/2017. CHIEF COMPLAINT: The patient was depressed, he had suicide thoughts. He had a plan of getting drunk and running in front of a semi truck. INTERVAL HISTORY: Patient has been doing fairly well. He had a quiet evening last night. He slept well. Today he has been up. He said his mood is better. He did not have any issues with anxiety or hallucinations this morning, which he sees as quite a positive. He has made contact with a group home and has a bed available for tomorrow. He has been able to work with the secondary social studies teacher at hand myself to set up followup plans. He has a better outlook. He has not had change in his general health. He tolerates his psychotropic medications. MENTAL STATUS: Patient gave good eye contact. Psychomotor activity was a little restless. His speech was clear. His affect was in the reasonable range. His mood was quiet and not down or depressed. He did appear to be distressed. ASSESSMENT: I will continue the current diagnosis and treatment plan. I will continue psychotropic medications the same. The patient has been making progress. We will aim to discharge the patient tomorrow. MMODL / IJN: [id number] /
[2017-09-12 16:41] LABS: Glucose,Whole Blood 174 mg/dL (75-99)
[2017-09-12 20:22] LABS: Glucose,Whole Blood 210 mg/dL (75-99)
[2017-09-12] MEDS: ATORVASTATIN 20 MG TAB PO SCH (21:20)
[2017-09-13 06:30] LABS: Glucose,Whole Blood 159 mg/dL (75-99)
[2017-09-13 07:16] VITALS: BP 109/67; PULSE 65; RESP 16; TEMP 97.9
[2017-09-13] MEDS: METOPROLOL TARTRATE 50 MG TAB PO SCH (08:40)
[2017-09-13] MEDS: LISINOPRIL 10 MG TAB PO SCH (08:40)
[2017-09-13] MEDS: NICOTINE 21MG/24HR PATCH TRANSDERM SCH (08:41)
[2017-09-13] MEDS: metFORMIN 850 MG TAB PO SCH (08:41)
[2017-09-13] MEDS: OLANZapine 10 MG TAB PO SCH (08:41)
[2017-09-13] MEDS: GABAPENTIN 300 MG CAP PO SCH (08:41)
[2017-09-13] MEDS: VENLAFAXINE HCL ER 150 MG CAP PO SCH (08:41)
[2017-09-13] MEDS: FOLIC ACID 1 MG TAB PO SCH (08:42)
[2017-09-13] MEDS: CYANOCOBALAMIN 500 MCG TAB PO SCH (08:42)
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
== END 2017-09-13 12:03 | disposition home or self-care (01) | DRG 885 ==
LOC: EC 11:09 → 3MHU 14:17
PROVIDERS: ADMIT Psychiatry & Neurology Psychiatry; ATTEND Psychiatry & Neurology Psychiatry
DX: F33.3 Major depressive disorder, recurrent, severe with psychotic symptoms (principal); E11.40 Type 2 diabetes mellitus with diabetic neuropathy, unspecified; R45.851 Suicidal ideations; E78.00 Pure hypercholesterolemia, unspecified; F10.20 Alcohol dependence, uncomplicated; F43.10 Post-traumatic stress disorder, unspecified; J44.9 Chronic obstructive pulmonary disease, unspecified; F41.0 Panic disorder [episodic paroxysmal anxiety]; F17.210 Nicotine dependence, cigarettes, uncomplicated; I10 Essential (primary) hypertension; E11.65 Type 2 diabetes mellitus with hyperglycemia; Z79.899 Other long term (current) drug therapy; Z91.5 Personal history of self-harm; Z56.0 Unemployment, unspecified; Z82.49 Family history of ischemic heart disease and other diseases of the circulatory system; Z80.41 Family history of malignant neoplasm of ovary; Z80.3 Family history of malignant neoplasm of breast; Z81.8 Family history of other mental and behavioral disorders
CPT/HCPCS: 36415; 80053; 80061; 80306; 81001; 82075; 83036; 84443; 85025; 99285

== ENCOUNTER 2017-11-02 11:38 | Inpatient (IN) | payer MEDICAID, OTHER ==
--- NOTE | 2017-11-02 12:23 | ED ---
General Adult HPI - General Chief complaint: Psychiatric Symptoms Stated complaint: suicidal Time Seen by Provider: 11/02/17 11:55 Source: patient, RN notes reviewed, old records reviewed Mode of arrival: ambulatory Limitations: no limitations - History of Present Illness Initial comments: This is a 39-year-old male to the ER prevention psychiatric illness. Patient does have history of psychiatric illness. Patient coming with it isn't going to commit suicide wine to kill himself with different thoughts and plans - Related Data Home Medications Medication Instructions Recorded Confirmed Atorvastatin [Lipitor] 20 mg PO HS 09/02/17 11/02/17 Lisinopril [Zestril] 10 mg PO DAILY 09/02/17 11/02/17 Metoprolol Tartrate [Lopressor] 50 mg PO BID 09/02/17 11/02/17 metFORMIN HCL [Glucophage] 850 mg PO TID 09/02/17 11/02/17 QUEtiapine FUMARATE [SEROquel] 300 mg PO HS 11/02/17 11/02/17 Previous Rx's Medication Instructions Recorded Cyanocobalamin [Vitamin B-12] 1,000 mcg PO DAILY@1200 #30 tab 09/13/17 Folic Acid 1 mg PO DAILY@1200 #30 tab 09/13/17 Gabapentin [Neurontin] 300 mg PO TID #90 cap 09/13/17 OLANZapine [ZyPREXA] 10 mg PO TID #90 tab 09/13/17 Allergies Allergy/AdvReac Type Severity Reaction Status Date / Time No Known Allergies Allergy Verified 11/02/17 12:10 Review of Systems ROS Statement: Those systems with pertinent positive or pertinent negative responses have been documented in the HPI. ROS Other: All systems not noted in ROS Statement are negative. Past Medical History Past Medical History: COPD, Diabetes Mellitus, Hyperlipidemia, Hypertension Additional Past Medical History / Comment(s): Hypertension and hypertensive cardio vascular disease, diabetes mellitus type 2, diabetic neuropathy, hyperlipidemia, chronic tobacco use and dependence, chronic alcohol use and dependence. History of Any Multi-Drug Resistant Organisms: None Reported Past Surgical History: No Surgical Hx Reported Past Anesthesia/Blood Transfusion Reactions: No Reported Reaction Additional Past Anesthesia/Blood Transfusion Reaction / Comment(s): Never had anesthesia Past Psychological History: Anxiety, Bipolar, Depression, Panic Disorder Smoking Status: Current every day smoker Past Alcohol Use History: Occasional Past Drug Use History: None Reported - Past Family History Mother Family Medical History: Cancer Additional Family Medical History / Comment(s): Mother at age 58 from ovarian cancer. Father Family Medical History: Coronary Artery Disease (CAD), Myocardial Infarction (ID ) Additional Family Medical History / Comment(s): Father at age 58 from myocardial infarction. His father also had 8 brothers who have all in their 50s from a myocardial infarction. Brother(s) Family Medical History: Hypertension Additional Family Medical History / Comment(s): Patient has 4 brothers and all have hypertension. Sister(s) Family Medical History: Cancer Additional Family Medical History / Comment(s): Patient has 3 sisters. 2 sisters have had breast cancer. One sister suffers from depression and has had previous suicide attempts. General Exam Limitations: no limitations General appearance: alert, in no apparent distress Head exam: Present: atraumatic, normocephalic, normal inspection Eye exam: Present: normal appearance, PERRL, EOMI. Absent: scleral icterus, conjunctival injection, periorbital swelling ENT exam: Present: normal exam, mucous membranes moist Neck exam: Present: normal inspection. Absent: tenderness, meningismus, lymphadenopathy Respiratory exam: Present: normal lung sounds bilaterally. Absent: respiratory distress, wheezes, rales, rhonchi, stridor Cardiovascular Exam: Present: regular rate, normal rhythm, normal heart sounds. Absent: systolic murmur, diastolic murmur, rubs, gallop, clicks GI/Abdominal exam: Present: soft, normal bowel sounds. Absent: distended, tenderness, guarding, rebound, rigid Extremities exam: Present: normal inspection, full ROM, normal capillary refill. Absent: tenderness, pedal edema, joint swelling, calf tenderness Back exam: Present: normal inspection Neurological exam: Present: alert, oriented X3, CN II-XII intact Psychiatric exam: Present: normal affect, normal mood Skin exam: Present: warm, dry, intact, normal color. Absent: rash Course Vital Signs 11/02/17 11:45 Temperature 97.7 F Pulse Rate 86 Respiratory 18 Rate Blood Pressure 134/84 O2 Sat by Pulse 100 Oximetry - Reevaluation(s) Reevaluation #1: 11/02/17 12:23 Patient's medically clear for psychiatric evaluation Medical Decision Making - Medical Decision Making 39 male seen evaluated with psychiatry will admit for psychiatric evaluation and treatment - Lab Data Lab Results 11/02/17 Range/Units 12:02 Urine Opiates Screen Not Detected (NotDetected) Ur Oxycodone Screen Not Detected (NotDetected) Urine Methadone Screen Not Detected (NotDetected) Ur Propoxyphene Screen Not Detected (NotDetected) Ur Barbiturates Screen Not Detected (NotDetected) U Tricyclic Antidepress Detected H (NotDetected) Ur Phencyclidine Scrn Not Detected (NotDetected) Ur Amphetamines Screen Not Detected (NotDetected) U Methamphetamines Scrn Not Detected (NotDetected) U Benzodiazepines Scrn Not Detected (NotDetected) Urine Cocaine Screen Not Detected (NotDetected) U Marijuana (THC) Screen Not Detected (NotDetected) Disposition Clinical Impression: Suicidal thoughts, Depression Disposition: TRANSFER TO PSYCH HOSP/UNIT Condition: Fair Referrals: Marcell Noble MD [Primary Care Provider] - 1-2 days
[2017-11-02 13:08] LABS: Amphetamine Screen,Urine Not Detected (NotDetected); Barbiturate Screen,Urine Not Detected (NotDetected); Benzodiazepines Screen,Urine Not Detected (NotDetected); Cocaine Screen,Urine Not Detected (NotDetected); Methadone Screen, Urine Not Detected (NotDetected); Opiate Screen,Urine Not Detected (NotDetected); Oxycodone Screen, Urine Not Detected (NotDetected); Phencyclidine Screen,Urine Not Detected (NotDetected); Tricyclic Antidepressant,Urine Detected (NotDetected); Urn Cannabinoid Scrn Not Detected (NotDetected)
[2017-11-02] MEDS ORDERED: ACETAMINOPHEN TAB 325 MG TAB PO PRN (15:03)
[2017-11-02] MEDS ORDERED: MAGNESIUM HYDROXIDE 2,400 MG/10 ML CUP PO PRN (15:03)
[2017-11-02] MEDS ORDERED: MAG HYDROX/AL HYDROX/SIMETH 30 ML CUP PO PRN (15:03)
[2017-11-02] MEDS ORDERED: ZIPRASIDONE 20 MG VIAL IM PRN (15:03)
[2017-11-02] MEDS ORDERED: LORazepam 1 MG TAB PO PRN (15:03)
[2017-11-02 15:17] LABS: Appearance,Urine Turbid (Clear); Bacteria,Urine Rare /hpf; Bilirubin,Urine Negative (Negative); Blood,Urine Negative (Negative); Color,Urine Yellow; Glucose,Urine (UA) 3+ (Negative); Hyaline Casts,Urine 4 /lpf (0-2); Ketones,Urine Trace (Negative); Leukocyte Esterase,Urine Negative (Negative); Mucus,Urine Many /hpf; Nitrite,Urine Negative (Negative); PH, Urine 5.5 (5.0-8.0); Protein,Urine 1+ (Negative); RBC,Urine <1 /hpf (0-5); Specific Gravity,Urine 1.027 (1.001-1.035); Sperm,Urine Occasional /hpf; Squamous Epithelial Cell,Urine 1 /hpf (0-4); WBC,Urine 1 /hpf (0-5)
[2017-11-02 16:05] VITALS: BMI 28.6
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
[2017-11-02 17:35] LABS: Glucose,Whole Blood 109 mg/dL (75-99)
[2017-11-02] MEDS: metFORMIN 850 MG TAB PO SCH ×2 (17:46→20:14)
[2017-11-02] MEDS: METOPROLOL TARTRATE 50 MG TAB PO SCH (20:14)
[2017-11-02] MEDS: OLANZapine 5 MG TAB PO SCH (20:15)
[2017-11-02] MEDS: ATORVASTATIN 20 MG TAB PO SCH (20:15)
[2017-11-02 20:21] LABS: Glucose,Whole Blood 189 mg/dL (75-99)
--- NOTE | 2017-11-02 21:43 | CONS ---
CONSULTATION DATE OF SERVICE: 11/02/2017 REASON FOR CONSULTATION: Advice regarding diabetes mellitus and hypertension, requested by Psychiatry. HISTORY OF PRESENT ILLNESS: This 47-year-old gentleman with a past medical history of COPD, diabetes, hypertension, hyperlipidemia, hypertensive cardiovascular disease, diabetic neuropathy, history of nicotine dependence, history of anxiety, bipolar depression, panic disorder, being followed by Dr. Noble in the outpatient setting, was admitted for psychiatric evaluation. The patient was evaluated for depression disorder, recurrent, moderate, with psychotic features at this time. There is no history of any fever, rigors, chills. No history of headache, loss of consciousness, seizures. PAST MEDICAL HISTORY: 1. COPD. 2. Diabetes mellitus. 3. Hypertension. 4. Hyperlipidemia. 5. History of hypertensive heart disease. 6. Anxiety, bipolar depression. 7. Panic disorder. MEDICATIONS: 1. Folic acid 1 mg p.o. daily. 2. Seroquel 300 mg p.o. at bedtime. 3. Vitamin B12 1000 mg p.o. daily. 4. Lipitor 20 mg p.o. at bedtime. 5. Glucophage 850 mg p.o. t.i.d. 6. Zyprexa 10 mg p.o. t.i.d. 7. Lopressor 50 mg p.o. b.i.d. 8. Zestril 10 mg p.o. daily. 9. Neurontin 300 mg p.o. t.i.d. ALLERGIES: NONE. FAMILY HISTORY: History of ovarian cancer in the family. SOCIAL HISTORY: History of smoking. No history of alcohol intake. REVIEW OF SYSTEMS: ENT: No diminished hearing. No diminished vision. CARDIOVASCULAR SYSTEM: No angina, palpitations. RESPIRATORY SYSTEM: No cough, hemoptysis. GI: No nausea, vomiting. : No dysuria or retention. NERVOUS SYSTEM: No numbness, weakness. ALLERGY/IMMUNOLOGY: No asthma, hayfever. MUSCULOSKELETAL: As mentioned earlier. HEMATOLOGY/ONCOLOGY: No history of anemia. ENDOCRINE: Diabetes mellitus. CONSTITUTIONAL: As mentioned earlier. DERMATOLOGY: Negative. RHEUMATOLOGY: Negative. PSYCHIATRY: As mentioned earlier. PHYSICAL EXAMINATION: Patient is alert and oriented x3. Pulse is 73, blood pressure 123/79, respiration 18, temperature 97.8, pulse ox 98% on room air. HEENT: Conjunctivae normal. Oral mucosa moist. NECK: No jugular venous distention. No carotid bruit. No lymph node enlargement. CARDIOVASCULAR SYSTEM: S1, S2 muffled. RESPIRATORY SYSTEM: Breath sounds diminished at the bases. No rhonchi. No crackles. ABDOMEN: Soft, non-tender. No mass palpable. LEGS: No edema. No swelling. NERVOUS SYSTEM: Higher functions as mentioned earlier. Cranial nerves 2-12 grossly intact. Eye movements are normal in all directions. No nystagmus. No diplopia. No facial deviation. Moves all 4 limbs. Power is normal. Gait is normal. No sensory abnormalities. SKIN: No ulcer, rash, bleeding. LYMPHATICS: No lymph node palpable in neck, axillae or groin. JOINTS: No active deforming arthropathy. LABS: Glucose 189. UA has 3+ glucose. Drug screen is positive for tricyclic antidepressants. ASSESSMENT: 1. Depression. 2. Diabetes mellitus, type 2. 3. Hypertension. 4. Hyperlipidemia. 5. History of chronic obstructive pulmonary disease. 6. Hypertensive cardiovascular disease. 7. Diabetic neuropathy. 8. History of nicotine dependence. 9. History of ethanol. 10.Anxiety, bipolar depression, panic disorder. RECOMMENDATIONS AND DISCUSSION: In this 47-year-old gentleman who presented with multiple complex medical issues, we will monitor the patient closely. I would recommend resuming the home medications. Monitor blood sugars closely. Accu-Cheks before meals and at bedtime. Psychiatric medications per psychiatrist. I would be happy to review any abnormal labs. Patient may be asked to follow with Dr. Noble closely after discharge. Thank you for letting us participate in the care of this patient. MMODL / IJN: [id number] /
[2017-11-03 06:24] LABS: Glucose,Whole Blood 148 mg/dL (75-99)
[2017-11-03 08:20] LABS: Basophils % (A) 0 %; Eosinophils # (A) 0.3 k/uL (0-0.7); Eosinophils % (A) 4 %; HCT 46.7 % (39.0-53.0); HGB 15.5 gm/dL (13.0-17.5); Lymphocytes # (A) 2.3 k/uL (1.0-4.8); Lymphocytes % (A) 27 %; MCH 31.7 pg (25.0-35.0); MCHC 33.1 g/dL (31.0-37.0); MCV 95.8 fL (80.0-100.0); Mean Platelet Volume 8.7; Monocytes # (A) 0.4 k/uL (0-1.0); Monocytes % (A) 4 %; Neutrophils # (A) 5.4 k/uL (1.3-7.7); Neutrophils % (A) 63 %; Platelet Count 209 k/uL (150-450); RBC 4.87 m/uL (4.30-5.90); RDW 12.2 % (11.5-15.5); WBC 8.6 k/uL (3.8-10.6)
[2017-11-03 08:29] LABS: ALT 49 U/L (21-72); AST 29 U/L (17-59); Alkaline Phosphatase 50 U/L (38-126); Anion Gap 9 mmol/L; Blood Urea Nitrogen 11 mg/dL (9-20); Calcium 9.4 mg/dL (8.4-10.2); Carbon Dioxide 29 mmol/L (22-30); Chloride 104 mmol/L (98-107); Cholesterol 125 mg/dL (<200); Glucose 157 mg/dL (74-99); HDL Cholesterol 26 mg/dL (40-60); Potassium 4.9 mmol/L (3.5-5.1); Sodium 142 mmol/L (137-145); Total Bilirubin 0.3 mg/dL (0.2-1.3); Total Protein 6.1 g/dL (6.3-8.2)
[2017-11-03] MEDS: LISINOPRIL 10 MG TAB PO SCH (08:46)
[2017-11-03] MEDS: VENLAFAXINE HCL ER 37.5 MG CAP PO SCH (08:46)
[2017-11-03] MEDS: METOPROLOL TARTRATE 50 MG TAB PO SCH ×2 (08:46→20:48)
[2017-11-03] MEDS: metFORMIN 850 MG TAB PO SCH ×3 (08:46→21:41)
[2017-11-03] MEDS: INSULIN ASPART 100 UNIT/ML 1 ML 10 ML VIAL SQ SCH ×4 (08:48→20:51)
[2017-11-03 08:57] LABS: Triglycerides 557 mg/dL (<150)
[2017-11-03] MEDS: NICOTINE 21MG/24HR PATCH TRANSDERM SCH (09:08)
[2017-11-03 12:34] LABS: Glucose,Whole Blood 112 mg/dL (75-99)
[2017-11-03] MEDS: CYANOCOBALAMIN 500 MCG TAB PO SCH (12:34)
[2017-11-03] MEDS: FOLIC ACID 1 MG TAB PO SCH (12:34)
--- NOTE | 2017-11-03 14:11 | P.PN ---
Progress Note - Text Progress Note Date: 11/03/17 Interval History: Patient is a 47-year-old male who was admitted yesterday and reports today that he did sleep about 7 hours last evening but states that the voices were quite intense this morning making derogatory comments and at that time he was having suicidal thoughts with the same plan of using an extension cord but no intent to act. Patient states the voices eventually subsided and he is no longer feeling suicidal. He states that he continues to feel depressed. Patient has not been attending groups and was lying in his bed due to the above symptoms. Patient reported no side effects from the medication. Mental Status: Appearance/Attitude: Patient is appropriately dressed, makes good eye contact and is cooperative. Behavior: Patient does not exhibit any psychomotor agitation or retardation. Speech/Language: Speech is spontaneous and of normal volume and rhythm and he is coherent. Thought Process: Patient is goal-directed there is no evidence of tangential or circumstantial thought and no evidence of loose association or flight of ideas. Thought Content: Patient reports that the auditory hallucinations were quite intense this morning making derogatory comments and during this time. He felt suicidal patient denies any visual hallucinations and no delusions or paranoid ideation were elicited. Patient states that he slept about 7 hours last evening and has been eating well. Patient continues to feel overwhelmed and hopeless with decreased interest and motivation to do things. Suicidal/Homicidal Ideation: Patient reports he was feeling suicidal this morning with the same plan to use an extension cord but no intent to act and this was while the voices were quite intense, he denies any current homicidal ideation Sensorium/Cognition: Patient was alert and oriented to person, place, time and his recent and remote memory are grossly intact. Mood/Affect: Patient's mood remains depressed and his affect is blunted Insight/Judgment: Patient's insight and judgment are intact. Assessment: Patient reports that he slept well last evening but continued to have auditory hallucinations this morning that were quite intense baking derogatory comments patient states during this time he had suicidal thoughts and had thought about the plan of using an extension cord but had no intent to act and states he does not want to . Patient reports that the voices eventually went away and he is no longer feeling suicidal. Patient continues to feel depressed, with a blunted affect and a decreased interest or motivation to do things. Patient reports no side effects from the medication and has not been attending groups or activities. Plan: Patient will continue on Zyprexa 5 mg at bedtime if the voices persist in intensity tomorrow and have not decreased Will increase his dose of Zyprexa, patient will continue on Effexor 37.5 mg in the morning and we will assess his continued response to this. Patient continues to require hospitalization secondary to his psychotic symptoms and to stabilize his mood.
[2017-11-03 17:36] LABS: Glucose,Whole Blood 134 mg/dL (75-99)
[2017-11-03 20:12] LABS: Glucose,Whole Blood 135 mg/dL (75-99)
[2017-11-03 20:14] LABS: Hemoglobin A1C 7.5 % (4.0-6.0)
[2017-11-03] MEDS: ATORVASTATIN 20 MG TAB PO SCH (20:48)
[2017-11-03] MEDS: OLANZapine 5 MG TAB PO SCH (20:50)
[2017-11-04 06:34] LABS: Glucose,Whole Blood 138 mg/dL (75-99)
[2017-11-04] MEDS: INSULIN ASPART 100 UNIT/ML 1 ML 10 ML VIAL SQ SCH ×4 (08:19→20:19)
[2017-11-04] MEDS: NICOTINE 21MG/24HR PATCH TRANSDERM SCH (08:44)
[2017-11-04] MEDS: metFORMIN 850 MG TAB PO SCH ×3 (08:45→21:19)
[2017-11-04] MEDS: METOPROLOL TARTRATE 50 MG TAB PO SCH ×2 (08:45→20:16)
[2017-11-04] MEDS: LISINOPRIL 10 MG TAB PO SCH (08:45)
[2017-11-04] MEDS: FOLIC ACID 1 MG TAB PO SCH (12:28)
[2017-11-04] MEDS: VENLAFAXINE HCL ER 37.5 MG CAP PO SCH (12:28)
[2017-11-04] MEDS: CYANOCOBALAMIN 500 MCG TAB PO SCH (12:28)
[2017-11-04 12:40] LABS: Glucose,Whole Blood 140 mg/dL (75-99)
--- NOTE | 2017-11-04 12:51 | P.PN ---
Progress Note - Text Progress Note Date: 11/04/17 Interval History: Patient is a 47-year-old male who is being seen and states that he was up and down most of the night. He describes continuing to ruminate about different things at night. He states the voices were less intense last evening patient states that he continues to have suicidal thoughts and continues at times to think about hanging himself and he states that this mostly occurs at night and at times he feels it would be easier if he just acted on this. He states that he doesn't have the suicidal thoughts as much during the day. Patient reports that these symptoms are not any worse since his admission. Patient states he was sleeping this morning but has been attending groups and activities. Mental Status: Appearance/Attitude: Patient is appropriately dressed, makes good eye contact and is cooperative Behavior: Patient does not exhibit any psychomotor agitation or retardation. Speech/Language: Speech is spontaneous and of normal volume and rhythm and he is coherent Thought Process: Patient is goal-directed there is no evidence of loose association or flight of ideas Thought Content: Patient reports the voices are still there but less intense and mostly at night he denies any visual hallucinations. No paranoid or delusional ideation is elicited. Patient reports that he continues to ruminate at night about different things and this makes it difficult for him to fall asleep. His sleep was disrupted last evening. His appetite is good. Patient states that he continues to have suicidal thoughts mostly at night with a plan to hang himself and at times feels it would be easier if he just did this. He states that this is not present as much during the day. Suicidal/Homicidal Ideation: Patient continues to have suicidal thoughts with a plan of hanging himself mostly at night less so during the day and denies any current homicidal ideation Sensorium/Cognition: Patient is alert and oriented to person, place, and time and his recent and remote memory are grossly intact Mood/Affect: Patient's mood remains depressed and his affect slightly blunted Insight/Judgment: Patient's insight and judgment are intact Assessment: Patient continues to report auditory hallucinations but he states the intensity is decreased and he continues to have suicidal thoughts with a plan of hanging himself. Patient states that these are worse during the evening and at night his sleep is disrupted as he ruminates about different things. Patient remains depressed and states that he has been attending groups and activities. He reports no side effects from the medication Plan: Patient will continue on Effexor 37.5 mg extended release in the morning and will increase his Zyprexa to 10 mg at night to target his psychotic symptoms. Patient will also be placed on melatonin 3 mg at bedtime to assist with his sleep. Patient was instructed to inform staff should he continue to have suicidal thoughts with a plan and feel that he may act on them. Patient was encouraged to continue to attend groups and activities. Patient continues to require hospitalization to further stabilize his mood and treat his psychotic symptoms.
[2017-11-04 18:10] LABS: Glucose,Whole Blood 127 mg/dL (75-99)
[2017-11-04 20:07] LABS: Glucose,Whole Blood 144 mg/dL (75-99)
[2017-11-04] MEDS: ATORVASTATIN 20 MG TAB PO SCH (20:15)
[2017-11-04] MEDS: MELATONIN 3 MG TABLET PO SCH (20:17)
[2017-11-04] MEDS ORDERED: OLANZapine 10 MG TAB PO SCH (21:00)
[2017-11-05 06:27] LABS: Glucose,Whole Blood 141 mg/dL (75-99)
[2017-11-05] MEDS: INSULIN ASPART 100 UNIT/ML 1 ML 10 ML VIAL SQ SCH ×4 (07:56→20:42)
[2017-11-05] MEDS: VENLAFAXINE HCL ER 37.5 MG CAP PO SCH (08:32)
[2017-11-05] MEDS: METOPROLOL TARTRATE 50 MG TAB PO SCH ×2 (08:32→20:44)
[2017-11-05] MEDS: metFORMIN 850 MG TAB PO SCH ×3 (08:32→20:45)
[2017-11-05] MEDS: LISINOPRIL 10 MG TAB PO SCH (08:32)
[2017-11-05] MEDS: NICOTINE 21MG/24HR PATCH TRANSDERM SCH (08:32)
--- NOTE | 2017-11-05 10:36 | P.PN ---
Progress Note - Text Progress Note Date: 11/05/17 Interval History: Patient is a 47-year-old male who was seen today and reports that the auditory hallucinations are unchanged from his admission. He states that they continue to at times tell him to hurt himself or are just making derogatory comments and he states that the intensity remains the same aunties not able to ignore them at times. Patient states that he did sleep better last evening having an easier time falling asleep. He also reports that his depression is improving because he thinks his outlook has improved as the suicidal ideation is less intense. Patient states that he's been attending groups and activities in the afternoon and his appetite is been good. Mental Status: Appearance/Attitude: Patient is appropriately dressed, makes good eye contact and is cooperative. Behavior: Patient does not exhibit any psychomotor agitation or retardation. Speech/Language: Patient's speech is spontaneous and of normal volume and rhythm and he is coherent Thought Process: Patient is goal-directed there is no evidence of circumstantial or tangential thought and no loose associations or flight of ideas were elicited Thought Content: Patient states that he continues to hear auditory hallucinations mostly at night which at times are command to hurt himself at other times are making derogatory comments, no visual hallucinations and no delusions or paranoid ideation were elicited. Patient states that the intensity of the auditory hallucinations has not changed and they remain the same as they were on admission. Patient states that he did sleep better last night having any easier time falling asleep. Patient feels that his outlook has improved Suicidal/Homicidal Ideation: Patient states that the suicidal ideations are less intense, but he continues to hear voices telling him to hurt himself. He denies any current homicidal ideation Sensorium/Cognition: Patient is alert and oriented to person, place, and time and his recent and remote memory are grossly intact. Mood/Affect: patient remains depressed although he states that his outlook has improved and his affect remains slightly blunted Insight/Judgment: patient's insight and judgment are intact Assessment: patient reports that his depression is improving because his outlook is much better, he states that the suicidal ideation is less intense but the auditory hallucinations have not changed in intensity and at times are command telling him to hurt himself. Patient states that the auditory hallucinations occur mostly in the evening. Patient states that he fell asleep better last night and had a better nights rest. Patient reports little change on the Zyprexa in his auditory hallucinations as well as the Seroquel he states was never helpful with the auditory hallucinations. Patient was encouraged to continue attending groups and activities which he did yesterday in the afternoon. Plan: patient and I discussed his poor response to both Zyprexa and Seroquel and will discontinue Zyprexa and start Abilify to target his auditory hallucinations and I reviewed the use and side effects of Abilify. Patient will begin Abilify 2 mg at bedtime. Patient reports no side effects from the Effexor and will continue at 37.5 mg extended release and evaluate his response and consider further titration. Patient continues to require hospitalization to stabilize his mood and target his auditory hallucinations and suicidal ideation.
[2017-11-05] MEDS: FOLIC ACID 1 MG TAB PO SCH (12:07)
[2017-11-05] MEDS: CYANOCOBALAMIN 500 MCG TAB PO SCH (12:07)
[2017-11-05 12:12] LABS: Glucose,Whole Blood 129 mg/dL (75-99)
[2017-11-05 17:27] LABS: Glucose,Whole Blood 202 mg/dL (75-99)
[2017-11-05 20:18] LABS: Glucose,Whole Blood 202 mg/dL (75-99)
[2017-11-05] MEDS: ATORVASTATIN 20 MG TAB PO SCH (20:44)
[2017-11-05] MEDS: ARIPiprazole 2 MG TAB PO SCH (20:45)
[2017-11-05] MEDS: MELATONIN 3 MG TABLET PO SCH (20:45)
[2017-11-06 06:25] LABS: Glucose,Whole Blood 135 mg/dL (75-99)
[2017-11-06] MEDS: INSULIN ASPART 100 UNIT/ML 1 ML 10 ML VIAL SQ SCH ×4 (07:42→21:24)
[2017-11-06] MEDS: METOPROLOL TARTRATE 50 MG TAB PO SCH ×2 (08:36→21:19)
[2017-11-06] MEDS: NICOTINE 21MG/24HR PATCH TRANSDERM SCH (08:36)
[2017-11-06] MEDS: LISINOPRIL 10 MG TAB PO SCH (08:36)
[2017-11-06] MEDS: metFORMIN 850 MG TAB PO SCH ×3 (08:36→21:20)
[2017-11-06] MEDS: VENLAFAXINE HCL ER 37.5 MG CAP PO SCH (08:36)
[2017-11-06] MEDS: CYANOCOBALAMIN 500 MCG TAB PO SCH (12:44)
[2017-11-06] MEDS: FOLIC ACID 1 MG TAB PO SCH (12:44)
[2017-11-06 12:55] LABS: Glucose,Whole Blood 115 mg/dL (75-99)
--- NOTE | 2017-11-06 14:03 | P.PN ---
Progress Note - Text Progress Note Date: 11/06/17 Interval History: Patient is a 47-year-old male who was seen today and he reports that he only slept about 4 hours last night stating that it was difficult to stay asleep. Patient states that he fell asleep and felt tired but did not stay asleep and feels tired this morning. He states that he was ruminating about worry such as finances, housing at night. He states that the auditory hallucinations were less last evening. He states he had some suicidal thoughts last night and at times they were intense as well as early this morning. He states he is continuing to feel nervous and anxious. Patient reports his mood is not as depressed as it was on admission. Mental Status: Appearance/Attitude: Patient is appropriately dressed, makes good eye contact and is cooperative. Behavior: Patient does not display any psychomotor agitation or retardation. Speech/Language: Speech is spontaneous of normal volume and rhythm and he is coherent Thought Process: Patient is goal-directed there is no evidence of tangential or circumstantial thought and no loose associations or flight of ideas Thought Content: Patient states that the auditory hallucinations were less frequent and intense last evening and he is not hearing them during the day, he denies any visual hallucinations. Paranoid or delusional ideation is not elicited. The patient states that he did not sleep well last night he is ruminating and worrying about finances, housing. States he is feeling tired this morning. Patient states that while sleeping his suicidal thoughts were more intense last evening but currently are not present. Suicidal/Homicidal Ideation: Patient denies current suicidal ideation but states he had thoughts last night that were intense, patient denies any current homicidal ideation Sensorium/Cognition: Patient is alert and oriented to person, place, and time and his recent and remote memory are grossly intact Mood/Affect: Patient's mood is depressed, but he states this is improving and his affect is slightly blunted Insight/Judgment: Patient's insight and judgment are fair Assessment: Patient reports a poor night sleep, feeling tired and falling asleep however not being able to stay asleep. He states that he kept ruminating and worrying about things such as housing finances. He states the voices last night were less intense and frequent but he did continue to have suicidal thoughts last evening which were intense at times but is currently not having them. He states that his depression is less but he feels more nervous and anxious at this time. He reports no side effects from the medication. Patient has been attending groups and activities. Plan: Patient will continue on Abilify 2 mg at night to target his psychotic symptoms, Effexor 37.5 mg extended release in the morning to target his depression and will continue melatonin 3 mg to target his sleep, we discussed and reviewed the use and side effects of trazodone and will begin 50 mg at bedtime to assist with his sleep. Patient states that he is looking for new housing as he had been renting a room [facility]. Patient continues to require hospitalization to further stabilize his mood and treat his psychotic symptoms.
[2017-11-06 17:43] LABS: Glucose,Whole Blood 153 mg/dL (75-99)
[2017-11-06 20:10] LABS: Glucose,Whole Blood 228 mg/dL (75-99)
[2017-11-06] MEDS: MELATONIN 3 MG TABLET PO SCH (21:18)
[2017-11-06] MEDS: ARIPiprazole 2 MG TAB PO SCH (21:18)
[2017-11-06] MEDS: ATORVASTATIN 20 MG TAB PO SCH (21:19)
[2017-11-06] MEDS: traZODone HCL 50 MG TAB PO SCH (21:19)
[2017-11-07 06:07] LABS: Glucose,Whole Blood 143 mg/dL (75-99)
[2017-11-07] MEDS: INSULIN ASPART 100 UNIT/ML 1 ML 10 ML VIAL SQ SCH ×4 (07:36→20:13)
[2017-11-07] MEDS: METOPROLOL TARTRATE 50 MG TAB PO SCH ×2 (08:11→20:12)
[2017-11-07] MEDS: metFORMIN 850 MG TAB PO SCH ×3 (08:11→21:22)
[2017-11-07] MEDS: NICOTINE 21MG/24HR PATCH TRANSDERM SCH (08:11)
[2017-11-07] MEDS: VENLAFAXINE HCL ER 37.5 MG CAP PO SCH (08:11)
[2017-11-07] MEDS: LISINOPRIL 10 MG TAB PO SCH (08:11)
--- NOTE | 2017-11-07 10:38 | P.PN ---
Progress Note - Text Progress Note Date: 11/07/17 Interval History: Patient is a 47-year-old male who was seen today and he reports that he slept for 6 hours last evening and was ruminating less about worries as the auditory hallucinations were much less intense and not as loud and was only there at the initial part of the evening. He states that he felt more comfortable and relaxed last evening and less stressed and was able to fall asleep. He states that he had some suicidal thoughts in the early evening but none for the rest of the night or so far this morning. Patient states he is feeling less overwhelmed and better able to focus. [facility]. He reports no side effects from the medication. Patient states that he's been able to focus better while attending groups in the afternoon yesterday. Mental Status: Appearance/Attitude: Patient is appropriately dressed, makes good eye contact and is cooperative. Behavior: Patient is not display any psychomotor agitation or retardation. Speech/Language: Patient's speech is spontaneous and of normal volume and rhythm and he is coherent. Thought Process: Patient is goal-directed there is no evidence of circumstantial or tangential thought and no loose associations or flight of ideas. Thought Content: Patient states that he had voices last evening when he was lying in bed eating to fall asleep they were less intense and not as loud and remain derogatory and this causes him to start ruminating and worrying. He states that once he fell asleep he slept for 6 hours and had no further episodes of auditory hallucinations. He states that he felt more comfortable and relaxed last evening. He states that he had suicidal thoughts in the early evening but none for the rest of the night or so far this morning. He states he 's feeling less overwhelmed and stressed. Suicidal/Homicidal Ideation: Patient denies any current suicidal or homicidal ideation and states he had suicidal thoughts last evening but no intent to act or plan. Sensorium/Cognition: Patient is alert and oriented to person, place, and time and his recent and remote memory are grossly intact. Patient states that his focus is better and he was able to concentrate in activities in groups yesterday afternoon. Mood/Affect: Patient's mood remains slightly depressed, he reports no longer feeling hopeless or helpless and his affect is appropriate Insight/Judgment: Patient's insight and judgment are fair. Assessment: Patient reports an improvement with the Abilify with the decrease in the intensity and loudness of the voices as well as his being able to fall asleep last night for 6 hours. He states with the voices being decreased in intensity he was not ruminating and worrying as much last night. He reports feeling more comfortable and relaxed. He had suicidal ideation in the early evening but none the rest of the night or this morning. He states he's feeling less overwhelmed, less hopeless. [facility] and [facility] that [facility] will [facility] a bed for him on Sunday. He reports his focus and concentration have improved. He reports no side effects from the medication. Patient has been attending groups and activities. Plan: Patient will continue on Abilify 2 mg at bedtime, Effexor 37.5 mg extended release in the morning to target his depression and psychotic symptoms and he will continue on trazodone 50 mg at bedtime as well as melatonin 3 mg at bedtime to target his sleep. Patient continues to require hospitalization to further treat his depression and psychotic symptoms and we discussed possible discharge at the end of the week.
[2017-11-07] MEDS: CYANOCOBALAMIN 500 MCG TAB PO SCH (12:18)
[2017-11-07] MEDS: FOLIC ACID 1 MG TAB PO SCH (12:18)
[2017-11-07 12:32] LABS: Glucose,Whole Blood 132 mg/dL (75-99)
[2017-11-07 17:31] LABS: Glucose,Whole Blood 220 mg/dL (75-99)
[2017-11-07] MEDS: ARIPiprazole 2 MG TAB PO SCH (20:12)
[2017-11-07] MEDS: ATORVASTATIN 20 MG TAB PO SCH (20:12)
[2017-11-07 20:16] LABS: Glucose,Whole Blood 217 mg/dL (75-99)
[2017-11-07] MEDS: traZODone HCL 50 MG TAB PO SCH (21:22)
[2017-11-07] MEDS: MELATONIN 3 MG TABLET PO SCH (21:22)
[2017-11-08 06:13] LABS: Glucose,Whole Blood 151 mg/dL (75-99)
[2017-11-08] MEDS: INSULIN ASPART 100 UNIT/ML 1 ML 10 ML VIAL SQ SCH ×5 (08:03→20:27)
[2017-11-08] MEDS: metFORMIN 850 MG TAB PO SCH ×3 (08:51→21:59)
[2017-11-08] MEDS: LISINOPRIL 10 MG TAB PO SCH (08:51)
[2017-11-08] MEDS: VENLAFAXINE HCL ER 37.5 MG CAP PO SCH (08:51)
[2017-11-08] MEDS: METOPROLOL TARTRATE 50 MG TAB PO SCH ×2 (08:51→21:59)
[2017-11-08] MEDS: NICOTINE 21MG/24HR PATCH TRANSDERM SCH (08:51)
[2017-11-08] MEDS: FOLIC ACID 1 MG TAB PO SCH (12:09)
[2017-11-08] MEDS: CYANOCOBALAMIN 500 MCG TAB PO SCH (12:09)
[2017-11-08 12:50] LABS: Glucose,Whole Blood 115 mg/dL (75-99)
--- NOTE | 2017-11-08 14:12 | P.PN ---
Progress Note - Text Progress Note Date: 11/08/17 Interval History: Patient is a 47-year-old male who reports that he did not sleep well at night new to another patient making a lot of noise on the unit. But patient reports that the auditory hallucinations were much less intense last evening and not as disruptive or disturbing. He states that there is much improvement in this symptom. Patient states that he has only had fleeting suicidal thoughts and they have not been intense nor is he thought about plans and he has no intent to act. Patient states his depression is improving and he is not hopeless or helpless about the future. Patient reports no side effects from his medication. Mental Status: Appearance/Attitude: Patient is appropriately dressed, makes good eye contact and is cooperative Behavior: Patient does not display any psychomotor agitation or retardation. Speech/Language:patient's speech is spontaneous, of normal volume and rhythm and he is coherent Thought Process: Patient is goal-directed there is no evidence of circumstantial or tangential thought and no loose associations or flight of ideas Thought Content: Patient states his auditory hallucinations are much less intense and less disturbing, no visual hallucinations, no delusions or paranoid ideation were elicited. Patient reports that he is not feeling hopeless or helpless and has been eating well. Last night patient states he did not have a restful sleep secondary to noise on the unit. Suicidal/Homicidal Ideation: Patient states that the suicidal ideation has only been fleeting and he has no plans or intent to act. Patient denies any current homicidal ideation Sensorium/Cognition: Patient is alert and oriented to person, place, and time and his recent and remote memory are grossly intact. Mood/Affect: Patient's mood is much less depressed, his affect is brighter Insight/Judgment: Patient's insight and judgment are fair. Assessment: Patient reports that his sleep was disrupted last night by noise on the unit. Patient states that the auditory hallucinations are much less intense and less disruptive as well as he is not ruminating as much at night about things as these decreased. Patient also reports that he is only had some fleeting suicidal thoughts with no plans or intent to act. Patient states he's feeling less depressed, has not been feeling as hopeless or helpless about the future. Patient reports no side effects from the medication. Patient has been attending groups and activities and finds them helpful. Plan: Patient will continue on Abilify 2 mg at bedtime, Effexor 37-1/2 mg extended release in the morning and trazodone 50 mg at bedtime and melatonin 3 mg at bedtime. Patient and I discussed discharge and he reports that he [facility] and is agreeable to for discharge. Patient will follow up at [facility] for his psychiatric care and follow-up with his primary care physician for his medical problems.
[2017-11-08 16:56] LABS: Glucose,Whole Blood 171 mg/dL (75-99)
[2017-11-08 20:16] LABS: Glucose,Whole Blood 196 mg/dL (75-99)
[2017-11-08] MEDS: ARIPiprazole 2 MG TAB PO SCH (21:59)
[2017-11-08] MEDS: traZODone HCL 50 MG TAB PO SCH (21:59)
[2017-11-08] MEDS: MELATONIN 3 MG TABLET PO SCH (21:59)
[2017-11-08] MEDS: ATORVASTATIN 20 MG TAB PO SCH (21:59)
[2017-11-09 06:34] LABS: Glucose,Whole Blood 170 mg/dL (75-99)
[2017-11-09 07:04] VITALS: BP 106/69; PULSE 73; RESP 12; TEMP 98.5
[2017-11-09] MEDS: metFORMIN 850 MG TAB PO SCH (08:24)
[2017-11-09] MEDS: METOPROLOL TARTRATE 50 MG TAB PO SCH (08:24)
[2017-11-09] MEDS: VENLAFAXINE HCL ER 37.5 MG CAP PO SCH (08:24)
[2017-11-09] MEDS: LISINOPRIL 10 MG TAB PO SCH (08:24)
[2017-11-09] MEDS: INSULIN ASPART 100 UNIT/ML 1 ML 10 ML VIAL SQ SCH (08:25)
[2017-11-09] MEDS: NICOTINE 21MG/24HR PATCH TRANSDERM SCH (08:25)
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
== END 2017-11-09 10:49 | disposition home or self-care (01) | DRG 885 ==
LOC: EC 11:38 → 3MHU 14:59
PROVIDERS: ADMIT Psychiatry & Neurology Psychiatry; ATTEND Psychiatry & Neurology Psychiatry
DX: F33.3 Major depressive disorder, recurrent, severe with psychotic symptoms (principal); R45.851 Suicidal ideations; E11.40 Type 2 diabetes mellitus with diabetic neuropathy, unspecified; I11.9 Hypertensive heart disease without heart failure; E78.5 Hyperlipidemia, unspecified; F17.200 Nicotine dependence, unspecified, uncomplicated; F41.0 Panic disorder [episodic paroxysmal anxiety]; J44.9 Chronic obstructive pulmonary disease, unspecified; G47.9 Sleep disorder, unspecified; Z79.84 Long term (current) use of oral hypoglycemic drugs; Z79.899 Other long term (current) drug therapy; Z91.5 Personal history of self-harm; Z81.8 Family history of other mental and behavioral disorders; Z82.49 Family history of ischemic heart disease and other diseases of the circulatory system
CPT/HCPCS: 80053; 80061; 80306; 81001; 82075; 83036; 84443; 85025; 99285